=== PATIENT | male | born 1955 | race Caucasian/White ===

== ENCOUNTER 2017-01-28 11:00 | Day surgery (SDC) | payer BC, OTHER ==
[~2017-01-28] VITALS: Ht 200.7 cm; Wt 154.2 kg
[2017-01-28] MEDS ORDERED: ASPIRIN 81 MG CHEW (CHILDREN'S ASA) ONE (11:07)
[2017-01-28] MEDS ORDERED: RX-NITROGLYCERIN 0.4 MG TAB BTL 25'S SL ONE ×2 (11:07→11:15)
[2017-01-28] MEDS ORDERED: ASPIRIN 81 MG CHEW (CHILDREN'S ASA) PO ONE (11:15)
[2017-01-28 11:16] LABS: BASOPHILS % (AUTO) 1 % (0-10); EOSINOPHILS # (AUTO) 0.2 10^3/uL (0.0-0.3); EOSINOPHILS % (AUTO) 3 % (0-10); LYMPHOCYTES # (AUTO) 2.2 X 10^3 (1.0-4.0); LYMPHOCYTES % (AUTO) 35 % (12-44); MEAN CORPUSCULAR HEMOGLOBIN 29 PG (25-34); MEAN CORPUSCULAR HGB CONC 35 G/DL (32-36); MEAN CORPUSCULAR VOLUME 83 FL (80-99); MEAN PLATELET VOLUME 10.2 FL (7.4-10.4); MONOCYTES # (AUTO) 0.5 X 10^3 (0.0-1.0); MONOCYTES % (AUTO) 8 % (0-12); NEUTROPHILS # (AUTO) 3.3 X 10^3 (1.8-7.8); NEUTROPHILS % (AUTO) 54 % (42-75); PLATELET COUNT 283 10^3/uL (130-400); RED BLOOD COUNT 5.43 10^6/uL (4.35-5.85); RED CELL DISTRIBUTION WIDTH 13.4 % (10.0-14.5); WHITE BLOOD COUNT 6.2 10^3/uL (4.3-11.0)
[2017-01-28] MEDS ORDERED: NS IV 1000 ML 1,000 ML ONE (11:18)
[2017-01-28] MEDS ORDERED: NS IV 1000 ML 1,000 ML IV ONE (11:20)
--- NOTE | 2017-01-28 11:20 | ED Chest Pain ---
General Chief Complaint: Chest Pain Stated Complaint: CHEST PAIN Nursing Triage Note: ARRIVED VIA WC TO ROOM 03. COMPLAINS OF CHEST PAIN STARTING THIS AM THAT WENT AWAY THEN CAME BACK APPX 30 MINS AGO. STATES PAIN IS BETTER NOW THAT HE IS NOT UP AND MOVING AROUND. Nursing Sepsis Screen: No Definite Risk Source: patient Exam Limitations: no limitations History of Present Illness Time seen by provider: 11:00 Initial Comments Here with report of chest pain to the center of his chest that started approximately 30 minutes prior to arrival. 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 This did radiate to the left side. It was associated with shortness of breath and sweating. He went to his primary care doctor's office who sent him directly here. The primary care doctor was wanting to send him by ambulance with his put him in the car right away and brought him to the hospital. On arrival to the hospital, patient was attempting to walk again and he was becoming very short of breath with increasing chest pain and diaphoresis. Denies vomiting or diarrhea. Denies other problems. Timing/Duration: 1 hour, changing over time Severity/Quality: moderate, severe, pressure Location: central Radiation: shoulders (left) Activities at Onset: activity Prior CP/Workup: no prior chest pain Modifying Factors: worse with movement, improves with oxygen, improves with rest ASA po TRANSIT DEPARTMENT CLERK: No NTG SL TRANSIT DEPARTMENT CLERK: No Associated Symptoms: No abdominal pain, No back pain, diaphoresis, fatigue, No nausea/vomiting, shortness of breath, weakness Allergies and Home Medications Allergies Coded Allergies: No Known Drug Allergies (Unverified , 01/28/17) Home Medications Amlodipine Besylate 10 Mg Tablet, 10 MG PO DAILY, (Reported) Cyanocobalamin (Vitamin B-12) 500 Mcg Tablet, 500 MCG PO HS, (Reported) Fish Oil/Dha/Epa 1 Each Capsule, 1,200 MG PO HS, (Reported) Gemfibrozil 600 Mg Tablet, 600 MG PO BID, (Reported) Metformin HCl 1,000 Mg Tablet, 1,000 MG PO HS, (Reported) Niacin 250 Mg Tablet, 250 MG PO BID, (Reported) Review of Systems Constitutional: see HPI, No chills, No fever EENTM: No Symptoms Reported Respiratory: See HPI, Shortness of Air, Denies Wheezing Cardiovascular: See HPI, Chest Pain, Denies Edema, Lightheadedness Gastrointestinal: No Symptoms Reported Genitourinary: No Symptoms Reported Musculoskeletal: no symptoms reported Skin: no symptoms reported Psychiatric/Neurological: No Symptoms Reported All Other Systems Reviewed Negative Unless Noted: Yes Past Thjdhjp-Mclind-Wuchil Hx Patient Social History Alcohol Use: Rarely Uses Recreational Drug Use: No Smoking Status: Current Someday Smoker Type Used: Cigars Recent Foreign Travel: No Contact w/Someone Who Travel: No Recent Infectious Disease Expo: No Recent Hopitalizations: No Seasonal Allergies Seasonal Allergies: Yes Surgeries HX Surgeries: Yes Surgeries: Orthopedic Respiratory Hx Respiratory Disorders: No Cardiovascular Hx Cardiac Disorders: Yes Cardiac Disorders: High Cholesterol, Hypertension Neurological Hx Neurological Disorders: No Reproductive System Hx Reproductive Disorders: No Genitourinary Hx Genitourinary Disorders: No Gastrointestinal Hx Gastrointestinal Disorders: No Musculoskeletal Hx Musculoskeletal Disorders: No Endocrine Hx Endocrine Disorders: Yes Endocrine Disorders: Diabetes, Non-Insulin dep HEENT HX ENT Disorders: No Cancer Hx Cancer: No Psychosocial Hx Psychiatric Problems: No Integumentary HX Skin/Integumentary Disorder: No Reviewed Nursing Assessment Reviewed/Agree w Nursing PMH: Yes Family Medical History Significant Family History: No Pertinent Family Hx Physical Exam Vital Signs Vital Sign - Last 12Hours Capillary Refill : Less Than 3 Seconds General Appearance: No Apparent Distress, WD/WN, Obese HEENT: PERRL/EOMI, Pharynx Normal Neck: Non Tender, Supple Respiratory: Lungs Clear, Normal Breath Sounds Cardiovascular: Regular Rate, Rhythm, No Murmur Gastrointestinal: Non Tender, Soft Extremity: Non Tender, No Calf Tenderness Neurologic/Psychiatric: Alert, Oriented x3 Skin: Normal Color, Diaphoresis Progress/Results/Core Measures Results/Orders Lab Results Laboratory Tests Test 01/28/17 11:05 01/28/17 11:07 Range/Units Glucometer 164 H 70-110 MG/DL White Blood Count 6.2 4.3-11.0 10^3/uL Red Blood Count 5.43 4.35-5.85 10^6/uL Hemoglobin 15.9 13.3-17.7 G/DL Hematocrit 45 40-54 % Mean Corpuscular Volume 83 80-99 FL Mean Corpuscular Hemoglobin 29 25-34 PG Mean Corpuscular Hemoglobin Concent 35 32-36 G/DL Red Cell Distribution Width 13.4 10.0-14.5 % Platelet Count 283 130-400 10^3/uL Mean Platelet Volume 10.2 7.4-10.4 FL Neutrophils (%) (Auto) 54 42-75 % Lymphocytes (%) (Auto) 35 12-44 % Monocytes (%) (Auto) 8 0-12 % Eosinophils (%) (Auto) 3 0-10 % Basophils (%) (Auto) 1 0-10 % Neutrophils # (Auto) 3.3 1.8-7.8 X 10^3 Lymphocytes # (Auto) 2.2 1.0-4.0 X 10^3 Monocytes # (Auto) 0.5 0.0-1.0 X 10^3 Eosinophils # (Auto) 0.2 0.0-0.3 10^3/uL Basophils # (Auto) 0.0 0.0-0.1 10^3/uL Prothrombin Time 13.6 12.2-14.7 SEC INR Comment 1.1 0.8-1.4 Activated Partial Thromboplast Time 28 24-35 SEC D-Dimer < 0.27 0.00-0.49 UG/ML Sodium Level 141 135-145 MMOL/L Potassium Level 4.1 3.6-5.0 MMOL/L Chloride Level 107 98-107 MMOL/L Carbon Dioxide Level 24 21-32 MMOL/L Anion Gap 10 5-14 MMOL/L Blood Urea Nitrogen 18 7-18 MG/DL Creatinine 1.07 0.60-1.30 MG/DL Estimat Glomerular Filtration Rate > 60 BUN/Creatinine Ratio 17 Glucose Level 161 H 70-105 MG/DL Calcium Level 9.6 8.5-10.1 MG/DL Magnesium Level 2.5 H 1.8-2.4 MG/DL Total Bilirubin 0.7 0.1-1.0 MG/DL Aspartate Amino Transf (AST/SGOT) 43 H 5-34 U/L Alanine Aminotransferase (ALT/SGPT) 60 H 0-55 U/L Alkaline Phosphatase 85 40-136 U/L Myoglobin 108.9 H 10.0-92.0 NG/ML Troponin I < 0.30 <0.30 NG/ML Total Protein 7.9 6.4-8.2 G/DL Albumin 4.9 H 3.2-4.5 G/DL Amylase Level 53 25-125 U/L Lipase 19 8-78 U/L My Orders Orders - TATIANA MARTINEZ MD Aspirin Chewable Tablet (Baby Aspirin Ch (4/19/17 11:07) Rx-Nitroglycerin Sl Tabs (Rx-Nitrostat S (01/28/17 11:07) Cbc With Automated Diff (01/28/17 11:10) Magnesium (01/28/17 11:10) Chest 1 View, Ap/Pa Only (01/28/17 11:10) Ekg Tracing (01/28/17 11:10) Cardiac Profile 1 (01/28/17 11:10) Comprehensive Metabolic Panel (01/28/17 11:10) Myoglobin Serum (01/28/17 11:10) Protime With Inr (01/28/17 11:10) Partial Thromboplastin Time (01/28/17 11:10) O2 (01/28/17 11:10) Monitor-Rhythm Ecg Trace Only (01/28/17 11:10) Lipid Panel (01/29/17 06:00) Aspirin Chewable Tablet (Baby Aspirin Ch (01/28/17 11:15) Rx-Nitroglycerin Sl Tabs (Rx-Nitrostat S (01/28/17 11:15) Saline Lock/Iv-Start (01/28/17 11:10) Lipase (01/28/17 11:10) Amylase (01/28/17 11:10) Fibrin Degradation Products (01/28/17 11:10) Ns Iv 1000 Ml (Sodium Chloride 0.9%) (01/28/17 11:20) Ns Iv 1000 Ml (Sodium Chloride 0.9%) (01/28/17 11:18) Medications Given in ED Current Medications Medications Dose Ordered Sig/Natty Route Start Time Stop Time Status Last Admin Dose Admin Aspirin 324 mg ONCE ONCE PO 01/28/17 11:15 01/28/17 11:16 DC 01/28/17 11:13 324 MG Nitroglycerin 0.4 mg UD ONCE SL 01/28/17 11:15 01/28/17 11:16 DC 01/28/17 11:13 0.4 MG Sodium Chloride 1,000 ml @ ud STK-MED ONCE .ROUTE 01/28/17 11:18 01/28/17 11:21 DC 01/28/17 11:23 1,000 MLS/HR Vital Signs/I&O Vital Sign - Last 12Hours 01/28/17 01/28/17 11:00 11:00 Temp 98.0 Pulse 76 B/P (MAP) 149/91 Pulse Ox 96 O2 Delivery Nasal Cannula Nasal Cannula O2 Flow Rate 2.00 2.00 Blood Pressure Mean: 110 Point of Care Testing Finger Stick Blood Glucose: 164 Blood Glucose Action Taken: dr notified Progress Note : Progress Note Seen and evaluated. IV, labs, EKG and chest x-ray ordered. ASA 324 mg by mouth. Nitroglycerin sublingual 1. This did precipitously drop his blood pressure. Normal saline 1 L bolus ordered. Monitor patient. 1212: Myoglobin elevated but troponin and d-dimer negative. Patient still concerning for pending IN given presentation and elevated myoglobin. I did discuss the case with Dr. Solis. He agrees with the concerns. He will take the patient to the [facility]. All of these findings and concerns were discussed with patient and family who agree. ECG Initial ECG Impression Date: Jan 28, 2017 Initial ECG Impression Time: 11:04 Initial ECG Rate: 86 Initial ECG Rhythm: Normal Sinus Comment Sinus rhythm with incomplete right bundle branch block. Normal axis. No evidence of ST elevation IN. Interpreted by me. Diagnostic Imaging Diagonstic Imaging: Xray Plain Films/CT/US/NM/MRI: chest Comments VIA [facility], [facility]. [place], [place] NAME: ERICKSON BARRERA [facility] REC#: [id number] PT STATUS: REG ER : 1955 PHYSICIAN: TATIANA MARTINEZ MD ADMIT DATE: 01/28/17/ER Draft Date of Exam:01/28/17 CHEST 1 VIEW, AP/PA ONLY INDICATION: Chest pain PA chest obtained at 1133 hrs. a.m. Heart is borderline enlarged. The lungs appear clear. There is no pneumothorax or pleural fluid. IMPRESSION: Borderline cardiomegaly. No acute process in the chest. Dictated on workstation # [id number] Dict: 01/28/17 1142 Trans: 01/28/17 1144 [facility] [id number] Interpreted by: ABENA ZAMAN MD Electronically signed by: Departure Impression Impression: Primary Impression: Chest pain Qualified Codes: R07.2 - Precordial pain Disposition: ADMITTED INPATIENT Condition: Stable Decision to Admit Reason: Admit from ER (General) Decision to Admit/Date: Jan 28, 2017 Time/Decision to Admit Time: 12:12 Departure-Patient Inst. Referrals: KAROLINE CHING DO (PCP/Family) Primary Care Physician TATIANA AMRTINEZ MD Jan 28, 2017 11:19
[2017-01-28 11:26] LABS: INR 1.1 (0.8-1.4); PROTHROMBIN TIME PATIENT 13.6 SEC (12.2-14.7)
[2017-01-28 11:34] LABS: ALANINE AMINOTRANSFERASE 60 U/L (0-55); ALBUMIN 4.9 G/DL (3.2-4.5); AMYLASE 53 U/L (25-125); ANION GAP 10 MMOL/L (5-14); ASPARTATE AMINO TRANSFERASE 43 U/L (5-34); BILIRUBIN,TOTAL 0.7 MG/DL (0.1-1.0); BLOOD UREA NITROGEN 18 MG/DL (7-18); BUN/CREATININE RATIO 17; CALCIUM 9.6 MG/DL (8.5-10.1); CARBON DIOXIDE 24 MMOL/L (21-32); CHLORIDE 107 MMOL/L (98-107); CREATININE SERUM 1.07 MG/DL (0.60-1.30); GFR ESTIMATED > 60; GLUCOSE 161 MG/DL (70-105); LIPASE 19 U/L (8-78); MAGNESIUM 2.5 MG/DL (1.8-2.4); POTASSIUM 4.1 MMOL/L (3.6-5.0); SODIUM 141 MMOL/L (135-145); TOTAL PROTEIN 7.9 G/DL (6.4-8.2)
[2017-01-28 11:41] LABS: MYOGLOBIN SERUM 108.9 NG/ML (10.0-92.0)
--- NOTE | 2017-01-28 11:44 | Diagnostic Imaging Report ---
INDICATION: Chest pain PA chest obtained at 1133 hrs. a.m. Heart is borderline enlarged. The lungs appear clear. There is no pneumothorax or pleural fluid. IMPRESSION: Borderline cardiomegaly. No acute process in the chest. Dictated by: Dictated on workstation # [id number]
[2017-01-28] MEDS ORDERED: AMLO10TA2 PO (12:01)
[2017-01-28] MEDS ORDERED: NIAC250T8 PO (12:01)
[2017-01-28] MEDS ORDERED: FISH1CAP15 PO (12:01)
[2017-01-28] MEDS ORDERED: CYAN500T2 PO (12:01)
[2017-01-28] MEDS ORDERED: METF1000 PO (12:01)
[2017-01-28] MEDS ORDERED: GEMF600T3 PO (12:01)
[2017-01-28] MEDS ORDERED: LIDOCAINE 1% INJ 20 ML (XYLOCAINE) VIAL ONE ×2 (12:20→12:49)
[2017-01-28] MEDS ORDERED: HEParin (CATH LAB) 2,000 ML IV ONE (12:21)
[2017-01-28] MEDS ORDERED: MIDAZOLAM 5 MG/5 ML (VERSED) VIAL ONE (12:40)
[2017-01-28] MEDS ORDERED: fentaNYL INJECTION 100 MCG/2 ML AMP ONE (12:40)
[2017-01-28] MEDS ORDERED: HEParin 1000 UNIT/ML (10ML VIAL) FOR BOLUS ONE (12:40)
[2017-01-28] MEDS ORDERED: diphenhydrAMINE 50 MG/ML INJ (BENADRYL) ONE (12:40)
[2017-01-28] MEDS ORDERED: NITROGLYCERIN DRIP 25 MG/D5W 0 ML IV ONE (12:41)
--- NOTE | 2017-01-28 12:45 | Cardiology History & Physical ---
HPI-Cardiology Cardiology H&P Date of Admission 01/28/17 Primary Care Physician Gustavo Saldivar DO Attending Physician Consulting Physician HPI 61 yo man with recurrent episodes of chest pain since this morning, each episode lasting up to 10 min, mid sternal and L parasternal, associated with exertion and improved with rest, each episode associated with diaphoresis, pressure-like feeling that is severe, not associated with syncope or palp. Has experience such episodes of lesser intensity intermittently for the last several months. Denies leg swelling. Denies shortness of breath Review of Systems-Cardiology Review of Systems Constitutional: No chills, No fever, No malaise, No weight loss, No weight gain Eyes: No vision change Ears/Nose/Throat: No ear discharge, No nasal drainage, No recent hearing loss Respiratory: As described under HPI Cardiovascular: As described under HPI Gastrointestinal: No constipation, No diarrhea, No nausea, No vomiting Genitourinary: No dysuria, No hematuria Musculoskeletal: No back pain, No joint pain Skin: No rash, No ulcerations Psychiatric/Neurological: No focal weakness, No seizure, No syncope Hematologic: bleeding abnormalities All Other Systems Reviewed Negative Unless Noted: Yes TVE-Podrev-Nvglwt Hx Patient Social History Alcohol Use: Rarely Uses Recreational Drug Use: No Smoking Status: Current Someday Smoker Type Used: Cigars Recent Foreign Travel: No Recent Infectious Disease Expo: No Past Medical History PMH As described under Assessment. Family Medical History Family Medical History: Does not report fam h/o early CAD Does report fam h/o AAA Allergies and Home Medications Allergies Coded Allergies: No Known Drug Allergies (Unverified , 01/28/17) Home Medications Amlodipine Besylate 10 Mg Tablet, 10 MG PO DAILY, (Reported) Cyanocobalamin (Vitamin B-12) 500 Mcg Tablet, 500 MCG PO HS, (Reported) Fish Oil/Dha/Epa 1 Each Capsule, 1,200 MG PO HS, (Reported) Gemfibrozil 600 Mg Tablet, 600 MG PO BID, (Reported) Metformin HCl 1,000 Mg Tablet, 1,000 MG PO HS, (Reported) Niacin 250 Mg Tablet, 250 MG PO BID, (Reported) Physical Exam-Cardiology Physical Exam Vital Signs/I&O Vital Sign - Last 12Hours 01/28/17 01/28/17 11:00 11:00 Temp 98.0 Pulse 76 B/P (MAP) 149/91 Pulse Ox 96 O2 Delivery Nasal Cannula Nasal Cannula O2 Flow Rate 2.00 2.00 Capillary Refill : Less Than 3 Seconds Constitutional: AAO x 3, well-developed, well-nourished HEENT: hearing is well preserved, No xanthelasmas are seen Neck: carotid pulses are 2 + bilaterally, with good upstrokes Respiratory: No accessory muscle use, lungs clear to percussion, lungs clear to auscultation Cardiovascular: regular rate-rhythm, S1 and S2, systolic murmur (faint BONNIE at card base) Gastrointestinal: No tender, soft, No guarding, audible bowel sounds Extremities: No clubbing, No cyanosis, No significant edema Neurologic/Psychiatric: oriented x 3, grossly intact, power is 5/5 both on sides Skin: No rash on exposed areas, No ulcerations on exposed areas Data Review Labs Laboratory Tests 01/28/17 11:05: Glucometer 164H 01/28/17 11:07: White Blood Count 6.2, Red Blood Count 5.43, Hemoglobin 15.9, Hematocrit 45, Mean Corpuscular Volume 83, Mean Corpuscular Hemoglobin 29, Mean Corpuscular Hemoglobin Concent 35, Red Cell Distribution Width 13.4, Platelet Count 283, Mean Platelet Volume 10.2, Neutrophils (%) (Auto) 54, Lymphocytes (%) (Auto) 35 , Monocytes (%) (Auto) 8, Eosinophils (%) (Auto) 3, Basophils (%) (Auto) 1, Neutrophils # (Auto) 3.3, Lymphocytes # (Auto) 2.2, Monocytes # (Auto) 0.5, Eosinophils # (Auto) 0.2, Basophils # (Auto) 0.0, Prothrombin Time 13.6, INR Comment 1.1, Activated Partial Thromboplast Time 28, D-Dimer < 0.27, Sodium Level 141, Potassium Level 4.1, Chloride Level 107, Carbon Dioxide Level 24, Anion Gap 10, Blood Urea Nitrogen 18, Creatinine 1.07, Estimat Glomerular Filtration Rate > 60, BUN/Creatinine Ratio 17, Glucose Level 161H, Calcium Level 9.6, Magnesium Level 2.5H, Total Bilirubin 0.7, Aspartate Amino Transf ( AST/SGOT) 43H, Alanine Aminotransferase (ALT/SGPT) 60H, Alkaline Phosphatase 85 , Myoglobin 108.9H, Troponin I < 0.30, Total Protein 7.9, Albumin 4.9H, Amylase Level 53, Lipase 19 Laboratory Tests 01/28/17 11:07 A/P-Cardiology Assessment/Admission Diagnosis Probable acute cor syndrome with unstable symptoms DM II Hypertension Hyperlipidemia Elevated BMI of approx 38 H/o occ tobacco use Discussion and Recomendations * Given above clinical scenario and continuing symptoms, urgent card cath is recommended * I spoke with him in detail regarding rationale, procedure, risks, benefits, potential complications, and alternatives of card cath and possible ad hoc cor intervention. This was in the presence of his immediate family. He understands and provides informed consent * Further decisions to be based on results of card cath Clinical Quality Measures AMI/AHF: ASA po Prior to arrival: KELVIN Ingram MD FACP FAC CCDS Jan 28, 2017 12:45
[2017-01-28] MEDS ORDERED: EPTIFIBATIDE BOLUS 0 ML IV ONE (13:13)
[2017-01-28] MEDS ORDERED: HEParin DRIP 25000 UNIT/500ML 500 ML IV ONE (13:39)
[2017-01-28 13:55] VITALS: BP 137/89
[2017-01-28] MEDS ORDERED: NS IV 1000 ML 1,000 ML IV SCH (14:38)
[2017-01-28] MEDS ORDERED: HEParin DRIP 25000 UNIT/500ML 500 ML IV SCH (14:45)
[2017-01-28] MEDS ORDERED: PATIENT MAY USE OWN MEDS, ALL PO SCH (14:45)
--- NOTE | 2017-01-28 14:49 | Cardiology Discharge Summary ---
Diagnosis/Chief Complaint Date of Admission 01/28/17 Date of Discharge 01/28/17 Admission Diagnosis Probable acute cor syndrome with unstable symptoms DM II Hypertension Hyperlipidemia Elevated BMI of approx 38 H/o occ tobacco use Final/Discharge Diagnosis Acute cor syndrome. Card cath of 01/28/17 shows prox bifurcation disease of LAD with stenoses of appox 80%, LVEF 55-60%, no thoracic aortic dissection DM II Hypertension Hyperlipidemia Elevated BMI of approx 38 H/o occ tobacco use Chief Complaint/HPI Chief Complaint/HPI 61 yo man with recurrent episodes of chest pain since this morning, each episode lasting up to 10 min, mid sternal and L parasternal, associated with exertion and improved with rest, each episode associated with diaphoresis, pressure-like feeling that is severe, not associated with syncope or palp. Has experience such episodes of lesser intensity intermittently for the last several months. Denies leg swelling. Denies shortness of breath After cath, I spoke with the patient and his family and with Dr Biggs at [facility]. Arrangements are being made to transfer for CABG Discharge Summary Procedures Card cath on 01/28/17 Hospital Course Pending Labs Laboratory Tests 01/28/17 11:05: Glucometer 164 01/28/17 11:07: White Blood Count 6.2, Red Blood Count 5.43, Hemoglobin 15.9, Hematocrit 45, Mean Corpuscular Volume 83, Mean Corpuscular Hemoglobin 29, Mean Corpuscular Hemoglobin Concent 35, Red Cell Distribution Width 13.4, Platelet Count 283, Mean Platelet Volume 10.2, Neutrophils (%) (Auto) 54, Lymphocytes (%) (Auto) 35 , Monocytes (%) (Auto) 8, Eosinophils (%) (Auto) 3, Basophils (%) (Auto) 1, Neutrophils # (Auto) 3.3, Lymphocytes # (Auto) 2.2, Monocytes # (Auto) 0.5, Eosinophils # (Auto) 0.2, Basophils # (Auto) 0.0, Prothrombin Time 13.6, INR Comment 1.1, Activated Partial Thromboplast Time 28, D-Dimer < 0.27, Sodium Level 141, Potassium Level 4.1, Chloride Level 107, Carbon Dioxide Level 24, Anion Gap 10, Blood Urea Nitrogen 18, Creatinine 1.07, Estimat Glomerular Filtration Rate > 60, BUN/Creatinine Ratio 17, Glucose Level 161, Calcium Level 9.6, Magnesium Level 2.5, Total Bilirubin 0.7, Aspartate Amino Transf (AST/SGOT ) 43, Alanine Aminotransferase (ALT/SGPT) 60, Alkaline Phosphatase 85, Myoglobin 108.9, Troponin I < 0.30, Total Protein 7.9, Albumin 4.9, Amylase Level 53, Lipase 19 Discussion & Recommendations Home Medications Reviewed patient Home Medication Reconciliation Form Discharge Home Medications: Reviewed and agree with Discharge Medication list on patient's Discharge Instruction sheet Clinical Quality Measures AMI/AHF: ASA po Prior to arrival: KELVIN Ingram MD FACP FACC CCDS Jan 28, 2017 14:49
--- NOTE | 2017-01-28 15:48 | CARDIAC CATHETERIZATION ---
DATE OF SERVICE: 01/28/2017 CARDIAC CATHETERIZATION REPORT The patient is a 61-year-old man with multiple coronary artery disease risk factors that include diabetes, hypertension, hyperlipidemia, obesity and history of intermittent tobacco use. He presents with unstable angina. Given continuing angina, cardiac catheterization was recommended. Informed consent was obtained. PROCEDURE: The patient was brought to the cardiac catheterization area in a fasting state. Right groin was prepared and draped in the usual sterile fashion. Lidocaine 1% was used for local anesthesia. Modified Seldinger technique was used to advance a 6-Greek sheath into the right femoral artery. A 6-Greek JL4 catheter was used for left coronary angiography. A 6-Greek JR4 catheter was used for right coronary angiography. A 6-Greek pigtail catheter was used for left heart catheterization and left ventricular angiography. Pigtail catheter was brought back to the aortic root and aortic root angiography was performed. Pigtail catheter was then pulled back to the aortic arch and aortic arch angiography was performed. The catheter was then removed. Angiography of the right femoral artery was carried out through the sheath. Mynx was used to achieve hemostasis. He tolerated the procedure well. HEMODYNAMICS: Left ventricular end-diastolic pressure was 10 mmHg. There was no significant pressure gradient on pullback across the aortic valve. Ascending aortic pressure was 114/72 with a mean of 67 mmHg. LEFT VENTRICULAR ANGIOGRAPHY: Left ventricular angiography was carried out in the right anterior oblique projection. Global left ventricular systolic function is well preserved. Left ventricular ejection fraction is 55%-60%. There does not appear to be significant mitral regurgitation. CORONARY ANGIOGRAPHY: Coronary calcification is present. Left main coronary artery does not have significant obstructive disease. Left anterior descending artery has 50%-60% ostial stenosis and 70%-80% stenosis at its bifurcation with the first diagonal branch. The first diagonal branch of the left anterior descending artery has a relatively long, up to 90% stenosis. The left circumflex artery has 30%-40% ostial stenosis and 30%-40% stenosis of the proximal portion of the first obtuse marginal branch. The right coronary artery is dominant and has 30%-40% proximal stenosis and the distal right coronary artery has diffuse, mild plaque. AORTIC ROOT ANGIOGRAPHY: Did not indicate any significant aortic regurgitation or ascending aortic aneurysm or dissection. AORTIC ARCH ANGIOGRAPHY: Did not indicate any significant thoracic aortic aneurysm or dissection. The neck arteries, to the extent seen, do not exhibit significant obstructive disease. CONCLUSIONS: 1. Coronary artery disease, primarily consisting of proximal bifurcation disease within the left anterior descending artery with stenosis of 70%-80% in the left anterior descending and 80%-90% in the first diagonal branch. The rest of the coronary vessels have diffuse, moderate disease. 2. Well preserved global left ventricular systolic function with an ejection fraction of 55%-60%. 3. Normal left ventricular end-diastolic pressure. 4. No evidence of any thoracic aortic aneurysm or dissection. DISCUSSION AND RECOMMENDATIONS: Based on the coronary anatomy and his history of diabetes mellitus, coronary artery bypass surgery appears to be the best treatment option. I discussed this with the patient, his family and called Dr. Biggs of cardiovascular surgical services at [facility]. Dr. Biggs has kindly accepted the patient in transfer for consideration of coronary artery bypass surgery. Arrangements are being made at the time of this dictation. Job ID: [id number] DocumentID: [id number] Dictated Date: 01/28/2017 13:51:07 Special Education Case Manager Date: 01/28/2017 15:47:34 Dictated By: KELVIN CARBONE MD, MA, FACP, FACC,
[2017-01-28 16:00] VITALS: BP 138/78
[2017-01-28 19:00] VITALS: BP 131/74
== END 2017-01-28 19:22 | disposition short-term general hospital (02) ==
LOC: EDUNIT# 11:00 → ER 11:02 → CATH 12:54 → ICU 13:55 → CATH 19:22
PROVIDERS: ATTEND Internal Medicine Cardiovascular Disease
DX: I25.110 Atherosclerotic heart disease of native coronary artery with unstable angina pectoris (principal); I25.84 Coronary atherosclerosis due to calcified coronary lesion; E11.9 Type 2 diabetes mellitus without complications; I10 Essential (primary) hypertension; E78.5 Hyperlipidemia, unspecified; Z72.0 Tobacco use; Z79.84 Long term (current) use of oral hypoglycemic drugs; Z79.899 Other long term (current) drug therapy
CPT/HCPCS: 36221; 36415; 71010; 80053; 82150; 82962; 83690; 83735; 83874; 84484; 85025; 85379; 85610; 85730; 93005; 93041; 93458; 93567; 96360

== ENCOUNTER → 2017-09-15 | Outpatient (CLI) | payer MEDICAID ==
[~2017-09-15] MED LIST: AMLO10TA2 PO; CYAN500T2 PO; FISH1CAP15 PO; GEMF600T3 PO; METF1000 PO; NIAC250T8 PO
== END ==
LOC: RAD 11:52
PROVIDERS: ATTEND Internal Medicine Cardiovascular Disease
DX: I73.9 Peripheral vascular disease, unspecified (principal)
CPT/HCPCS: 93923

== ENCOUNTER → 2020-01-12 | Outpatient (CLI) | payer MEDICAID, MEDICARE, OTHER ==
[~2020-01-12] VITALS: Ht 197 cm; Wt 155.0 kg
[~2020-01-12] MED LIST changes: -AMLO10TA2 PO; +AMLO10TA7 PO; -CYAN500T2 PO; +CYAN500T62 PO; -GEMF600T3 PO; +GEMF600T8 PO; +METF-399 PO; -METF1000 PO; +REGADENOSON 0.4 MG/5 ML SYR (LEXISCAN) IV ONE
[2020-01-12] MEDS: CATHETER FLUSH 10 ML SYR IV PRN ×2 (07:21→08:28)
[2020-01-12 08:25] VITALS: BP 173/101
--- NOTE | 2020-01-12 13:03 | STRESS TEST ---
DATE OF SERVICE: 01/12/2020 NUCLEAR MYOVIEW REPORT REFERRING PHYSICIAN: Dr. Saldivar. In summary, the patient was injected with 10.41 mCi of technetium-99 Myoview and the resting images were obtained. Then, the patient received 0.4 mg of Lexiscan followed by 31.7 mCi of technetium-99 Myoview. Throughout the test, there were no EKG changes. The resting and stress images were reviewed and compared in the short axis, horizontal long axis, and vertical long axis views. Review of the images showed extracardiac attenuation with typical male pattern. No significant ischemia or infarction. SSS is 3, SDS 3, TID value 1.09. On the gated images, the left ventricle appeared to be normal size with normal contractility. Calculated ejection fraction 54%. CONCLUSION: 1. The patient tolerated Lexiscan well. 2. Typical male pattern with no significant ischemia or infarction on SPECT images. 3. Normal left ventricular size with normal contractility. Calculated ejection fraction 54%. Job ID: [id number] DocumentID: [id number] Dictated Date: 01/12/2020 12:48:24 Mica Washer Gluer Date: 01/12/2020 13:02:04 Dictated By: JOSEPH DEMPSEY MD
== END ==
LOC: CARD 06:52
PROVIDERS: ATTEND Internal Medicine
DX: R07.9 Chest pain, unspecified (principal); I25.10 Atherosclerotic heart disease of native coronary artery without angina pectoris
CPT/HCPCS: 78452; 93017